=== PATIENT | female | born 1955 | race African-American/Black ===

== ENCOUNTER 2018-07-06 12:28 | Inpatient (IN) ==
[2018-07-06] MEDS ORDERED: TYLENOL PO PRN (13:58)
[2018-07-06] MEDS ORDERED: MORPHINE IV ONE (14:09)
[2018-07-06] MEDS ORDERED: VANCOMYCIN IV PER PHARMACY MISC SCH (14:15)
[2018-07-06 14:49] LABS: BASO# 0.03 X1000 (0.0-0.2); BASO% 0.2 % (0.0-0.8); EOS# 0.62 X1000 (0.0-0.7); EOS% 3.9 % (0.0-10.0); HEMATOCRIT 30.3 % (37.0-47.0); HEMOGLOBIN 9.9 g/dL (12.0-16.0); IMM GRAN# 0.14 X1000 (0.0-0.04); IMM GRAN% 0.9 % (0.0-0.5); LYMPH# 3.25 X1000 (1.2-3.4); LYMPH% 20.3 % (20.5-51.1); MCH 21.9 PG (27-31); MCHC 32.7 g/dL (33-37); MCV 66.9 FL (81-99); MONO# 1.03 X1000 (0.11-0.59); MONO% 6.4 % (1.7-9.3); MPV 12.7 FL (7.4-10.4); NEUT# 10.94 X1000 (1.4-6.5); NEUT% 68.3 % (42.2-75.2); PLT 243 X1000 (130-400); RBC 4.53 XMIL (4.2-5.4); RDW 14.9 % (11.5-14.5); WBC 16.01 X1000 (4.8-10.8)
[2018-07-06 14:58] LABS: AGAP 12; BUN 19 mg/dL (8-22); CALCIUM 8.9 mg/dL (8.8-10.2); CHLORIDE 101 mmol/L (98-107); COSMO 276; CREATININE 0.9 mg/dL (0.5-0.9); ESTIMATED GFR > 60; GLUCOSE 91 mg/dL (70-104); POTASSIUM 4.3 mmol/L (3.5-5.1); SODIUM 137 mmol/L (136-145); TCO2 24 mmol/L (25-35)
[2018-07-06] MEDS ORDERED: LOVENOX SUBQ SCH (15:00)
[2018-07-06] MEDS ORDERED: CLINDAMYCIN 600 MG/D5W 600 MG/50 ML IVPB IV SCH (15:00)
--- NOTE | 2018-07-06 15:09 | HISTORY AND PHYSICAL ---
PRIMARY CARE PROVIDER: CRISS Bernal. CHIEF COMPLAINT: Of a left chest wall cellulitis that began Thursday and progressively worsened. HISTORY OF PRESENTING ILLNESS: This is a 63-year-old female who presents to [facility] ER as a direct admit from her primary care physician's office sent after she was seen there today states that on Thursday she began having a small jerome sized area to her left chest right above her breast that was small on Thursday and was a little bit red and tender to touch. She was unable to get in to see her primary care physician at that time and so she waited until today. Over the weekend she said it kept extending toward her shoulder and down into the left breast. It is now noted to have erythema, edema, warmth to touch with a 4 inch indurated hard area in the center down into the left breast extending toward the nipple is erythema, appears to be a mastitis also so she is being admitted for further evaluation and treatment. PAST MEDICAL HISTORY: Hypertension. PAST SURGICAL HISTORY: Of a hysterectomy, a right elbow surgery and a right foot surgery. FAMILY HISTORY: Reviewed and noncontributory. SOCIAL HISTORY: She currently lives with family. Denies any tobacco, alcohol or illicit drug use. ALLERGIES: To Ceclor, penicillin, promethazine and leather. HOME MEDICATIONS: A current list will need to be obtained, reconciled, reviewed and restarted as appropriate. Will place an order for nursing to update and confirm her home medications. LABORATORY DATA: We were in the process of obtaining a CBC, BMP, CT of the thorax with contrast as she is a direct admit so will have to await the results of those tests. REVIEW OF SYSTEMS: She denied any fever, chills, blurred vision. She does have pain to her left upper chest wall with any movement or touch to the area. She denied any shortness of breath, cough, abdominal pain, constipation, diarrhea, nausea, burning or hurting with urination. PHYSICAL EXAMINATION: On arrival she had a temperature of 97.9 degrees, a pulse of 60, respirations 18, blood pressure 150/65, saturating 98% on room air. GENERAL: This is a 63-year-old female who is lying in the bed and answers questions appropriately. HEENT: Normocephalic and atraumatic. Normal ENT inspection. Pupils are equal, round, reactive to light, accommodation. Extraocular movements are intact. NECK: Normal inspection. Normal range of motion. SKIN: To her left upper chest wall she is noted to have erythema, edema, warmth to touch, about a 4 inch indurated area to the center of the left chest that is hardened, it also extends into her left breast with erythema, edema, warmth to touch, tenderness to touch and appears to be a mastitis there suspicious for an abscess to this left chest wall. She has 1 small area toward her shoulder that is a small pustule that was intact at the time of arrival. No drainage noted. LUNGS: Clear to auscultation bilaterally with equal lung expansion and chest wall movement. HEART: With regular rate and rhythm. No murmurs, rubs, or gallops. ABDOMEN: Soft, nontender, nondistended. Bowel sounds are present x4 quadrants. MUSCULOSKELETAL: She has 5/5 strength x4 extremities. Moves all extremities well. NEUROLOGICAL: The cranial nerves 2-12 appear grossly intact. ASSESSMENT: 1. A left chest wall cellulitis, suspect abscess also. 2. Left breast mastitis secondary to #1. 3. Hypertension history of. PLAN: She was admitted to the medical unit, placed on healthy heart diet. We are going to consult general surgery and again we are obtaining a CBC, BMP, UA, CT of the thorax with contrast to evaluate for an abscess. I am going to give her morphine 4 mg IV x1 now and give her 2 mg IV q.2 hours p.r.n., clindamycin 600 mg IV q.8, vancomycin per pharmacy protocol, Zofran 4 mg IV q.4 hours p.r.n., blood cultures x2, Lovenox 40 mg subcu q.24 for DVT prophylaxis. Will again recheck CBC, BMP in the a.m. We will review all of these results this afternoon and further orders after being seen by attending. Dictated by CRISS Conner for Zaki Erickson MD cc: CRISS Bernal MD
--- NOTE | 2018-07-06 15:20 | HISTORY AND PHYSICAL ---
ADDENDUM: This is an addendum on Ms. Paris Quezada. She is a very pleasant 63-year-old female. She has no major history, but she has had a foot infection apparently in the past, but I do not have any information from that. Apparently she has had a foot infection which Dr. Ravi was managing, but in any case she was seen by her PCP in follow up today for left chest wall cellulitis, which has been rapidly expanding, extremely painful. She has a large area of induration, possibly some early fluctuance 4 to 5 cm in size, it is protuberant from her chest. She also has erythema and streaking down into her left breast, pretty much throughout the left breast. This is a left chest wall cellulitis with associated mastitis, possibly likely developing abscess. We will put her on IV antibiotics, vancomycin, clindamycin, and pursue imaging, surgical consult. I have done just a bedside wound culture because she had a small blister that was deroofed and had a little bit of liquid associated, but there was no evidence of clear purulence. This is a [id number] encounter note with Debra Carter. cc: Zaki Erickson MD
[2018-07-06] MEDS ORDERED: PERCOCET-5 PO ONE (15:23)
[2018-07-06] MEDS ORDERED: VANCOMYCIN 2,000 MG in NS 500 ML IV ONE (16:00)
[2018-07-06 17:33] LABS: BILIRUBIN URINE NEGATIVE (NEGATIVE); BLOOD URINE NEGATIVE (NEGATIVE); CLARITY CLEAR (CLEAR); COLOR YELLOW; GLUCOSE URINE NEGATIVE (NEGATIVE); KETONE URINE NEGATIVE (NEGATIVE); LEUKOCYTES URINE NEGATIVE (NEGATIVE); NITRITE URINE NEGATIVE (NEGATIVE); PH URINE 6.5; PROTEIN URINE NEGATIVE (NEGATIVE); UROBILINOGEN URINE NORMAL
--- NOTE | 2018-07-06 18:09 | Diag Imaging Result Doc PS360 ---
EXAM: CT THORAX W/CONTRAST HISTORY: left chest wall cellulitis, r/o abscess TECHNIQUE: CT chest with intravenous contrast COMPARISON: None. FINDINGS:Skin thickening and soft tissue swelling in the left supraclavicular area extending into the upper breast. Prominent lobulated fluid which is somewhat poorly defined. No air within this. No pleural effusions. No cardiomegaly. No thoracic aortic aneurysm or dissection. No enlarged mediastinal lymph nodes. Mildly prominent axillary nodes. No pneumothoraces. No consolidation. No bronchiectasis. There calcified right hilar lymph nodes with a right upper lobe granuloma. IMPRESSION: Prominent soft tissue swelling with possible early fluid collection/abscess although it is poorly defined at this time. This exam was performed using automated exposure control, adjustment of mA or kV according to patient size, and/or use of iterative reconstruction technique. Electronically signed by Jamil Matos 07/06/2018 6:07 PM
[2018-07-06 18:23] LABS: URINE BACTERIA 1+ /HFP; URINE CAST NONE SEEN /LPF; URINE CRYSTAL NONE SEEN /HPF; URINE EPITHELIAL CELLS <10 /HPF (<10); URINE SOURCE CLEAN CATCH; URINE WBC <10 /HPF (<10); URINE YEAST NONE SEEN /HPF
[2018-07-06] MEDS: ZOFRAN IV PRN (19:41)
[2018-07-06] MEDS: MORPHINE IV PRN ×2 (20:34→22:20)
[2018-07-06] MEDS: CLINDAMYCIN 600 MG/D5W 600 MG/50 ML IVPB IV SCH (23:27)
--- NOTE | 2018-07-06 23:30 | GENERAL SURGERY CONSULTATION ---
DATE: 07/06/2018 HISTORY OF PRESENT ILLNESS: This is a 62-year-old female who has had a follicular lesion in the left upper breast, left subclavicle. chest for the last week or so. It has developed more swelling, induration, erythema, and pain. She went to her primary physician, Dr. Shama Hoffman, who has referred her to the ER for admission. She denies any drainage. She has had some subjective fevers, quite a lot of pain associated with this. She has had regular mammograms that have, apparently, been normal, although we do not have those here with us today. MEDICAL HISTORY: Negative. SURGICAL HISTORY: Negative. SOCIAL HISTORY: No tobacco, alcohol, or drugs. She works at [employer] FAMILY HISTORY: Reviewed and noncontributory. REVIEW OF SYSTEMS: Ten point negative. PHYSICAL EXAMINATION: Vitals: No fevers. Pulse 82, blood pressure 143/60, oxygen saturation 100% on room air. General: She is alert. HEENT: No scleral icterus or cervical mass. Cardiovascular: Normal rate. Regular rhythm. Pulmonary: No increased work of breathing. Abdomen: Soft, nontender, nondistended. Integument: Warm, dry. Psychiatric: Appropriate affect. Neurologic: No gross deficits. Lymphatic: No cervical, supraclavicular, or axillary adenopathy. Breast: There is no obvious masses bilaterally. In the left upper breast, there is erythema extending from her subclavicle skin down to the superior aspect of her breast. It is very indurated and fluctuant, but there is no discrete mass. There is no nipple retraction or skin retraction. No scars. ASSESSMENT AND PLAN: A 62-year-old female with apparent left chest abscess underneath her left clavicle/upper breast. She unfortunately had just eaten dinner. She is afebrile. She does have leukocytosis, she is on appropriate antibiotics. I do not feel any crepitus or evidence of necrosis. I have recommended incision and drainage of this in the operating room tomorrow. I have posted her. We will transfer her to [facility] [place]. I would continue clindamycin for this. We will culture it in the operating room. cc: Jesus Fam MD
[2018-07-07] MEDS: MORPHINE IV PRN ×2 (04:34→09:02)
[2018-07-07] MEDS: CLINDAMYCIN 600 MG/D5W 600 MG/50 ML IVPB IV SCH ×4 (06:25→22:08)
[2018-07-07] MEDS: LOVENOX SUBQ SCH (06:30)
[2018-07-07 06:43] LABS: BASO# 0.03 X1000 (0.0-0.2); BASO% 0.2 % (0.0-0.8); EOS# 0.65 X1000 (0.0-0.7); HEMATOCRIT 28.7 % (37.0-47.0); HEMOGLOBIN 9.1 g/dL (12.0-16.0); IMM GRAN# 0.06 X1000 (0.0-0.04); IMM GRAN% 0.5 % (0.0-0.5); LYMPH# 2.17 X1000 (1.2-3.4); LYMPH% 16.8 % (20.5-51.1); MCH 21.4 PG (27-31); MCHC 31.7 g/dL (33-37); MCV 67.5 FL (81-99); MONO% 5.4 % (1.7-9.3); MPV 12.4 FL (7.4-10.4); NEUT# 9.27 X1000 (1.4-6.5); NEUT% 72.1 % (42.2-75.2); PLT 244 X1000 (130-400); RBC 4.25 XMIL (4.2-5.4); RDW 14.8 % (11.5-14.5); WBC 12.88 X1000 (4.8-10.8)
[2018-07-07 07:03] LABS: AGAP 12; BUN 16 mg/dL (8-22); CALCIUM 8.5 mg/dL (8.8-10.2); CHLORIDE 102 mmol/L (98-107); COSMO 276; ESTIMATED GFR > 60; GLUCOSE 112 mg/dL (70-104); POTASSIUM 3.9 mmol/L (3.5-5.1); SODIUM 137 mmol/L (136-145); TCO2 23 mmol/L (25-35)
[2018-07-07] MEDS ORDERED: MIRALAX PO PRN (09:58)
[2018-07-07] MEDS ORDERED: SUFENTA ONE (11:06)
[2018-07-07] MEDS ORDERED: DIPRIVAN 1% ONE (11:52)
--- NOTE | 2018-07-07 14:04 | PROGRESS NOTE ---
DATE: 07/07/2018 SUBJECTIVE: Patient resting comfortably in bed. OBJECTIVE: Vital Signs: Temperature is 98.3 degrees, pulse is 71, respiratory rate 16, blood pressure is 115/62, oxygen saturation is 99%. HEENT: Atraumatic, normocephalic. Cardiovascular system: S1, S2. Respiratory system: Has evidence of good air entry bilaterally. Chest: She has a wound on the region of the left chest wall dressed. Abdomen: Soft, nontender. No masses felt. Extremities: No evidence of edema. Central nervous system: No obvious focal deficit noted. LABORATORY DATA: WBC is 12.8, hematocrit is 28.7 with a platelet count of 244,000. Sodium is 137, potassium 3.9, chloride is 102, bicarb is 23, BUN 16, creatinine 1.0. Wound culture came back positive for gram-positive cocci. ASSESSMENT AND PLAN: 1. Abscess left chest wall status post incision and drainage. Continue local wound care as well as IV antibiotics. 2. Hypertension. Controlled. 3. Deep vein thrombosis prophylaxis. Sequential compression devices. 4. Gastrointestinal prophylaxis. Proton pump inhibitor. cc: Kenrick Wise MD
--- NOTE | 2018-07-07 14:18 | GENERAL SURGERY PROGRESS NOTE ---
DATE: 07/07/2018 SUBJECTIVE: No events overnight. No fevers. No tachycardia. LABORATORY DATA: Reviewed. White count is down to 12, hematocrit is 28. Creatinine is 1.0. IMAGING: I have reviewed her CT scan. ASSESSMENT AND PLAN: A 63-year-old female with left anterior chest abscess. We discussed the risks of bleeding, recurrence, need for further surgery, anticipated recovery, and possible prolonged wound healing. She understands and consents. Will go to the operating room today for incision and drainage of left anterior chest abscess. Will continue on antibiotics. cc: Jesus Fam MD
--- NOTE | 2018-07-07 14:50 | OPERATIVE NOTE ---
PROCEDURE DATE: 07/07/2018 POSTOP DIAGNOSIS: Left anterior chest abscess. POSTOPERATIVE DIAGNOSIS: Left anterior chest abscess. PROCEDURE PERFORMED: Incision and drainage of left anterior chest abscess. ESTIMATED BLOOD LOSS: 10 mL. SPECIMENS: Cultures. ANESTHESIA: General. INDICATIONS: This is a 63-year-old female with a large complex abscess of the anterior chest. FINDINGS: Abscess cavity extending down to the level of the pectoralis muscle. OPERATIVE NOTE: Risks, benefits, and alternatives were discussed with the patient. She consented to the procedure. Seen preoperatively and the surgical site was confirmed and marked. She was taken to the operating room and placed in the supine position. General anesthesia induced without complication. All bony prominence were padded. Her chest was prepped with Betadine and draped in usual fashion. After a time-out, we made an incision over the area of greatest fluctuance. We expressed a large amount of pus, we cultured this, disrupted loculations, irrigated the wound with Vashe, confirmed hemostasis, packed with iodoform gauze, covered it with 4 x 4 gauze. She tolerated it well. She was awoken and transferred to recovery. I spoke with family. cc: Jesus Fam MD
[2018-07-07] MEDS: PERCOCET-5 PO PRN ×2 (16:14→22:09)
[2018-07-07] MEDS ORDERED: VANCOMYCIN 1,750 MG in NS 250 ML IV SCH (18:00)
[2018-07-07] MEDS: VANCOMYCIN 1,750 MG in NS 250 ML IV SCH (18:19)
[2018-07-07] MEDS: PERIDEX MT SCH (22:08)
[2018-07-08] MEDS: PERCOCET-5 PO PRN ×2 (03:56→21:26)
[2018-07-08] MEDS: MORPHINE IV PRN ×2 (05:54→15:46)
[2018-07-08 06:26] LABS: BASO# 0.05 X1000 (0.0-0.2); BASO% 0.4 % (0.0-0.8); EOS# 0.53 X1000 (0.0-0.7); EOS% 4.7 % (0.0-10.0); HEMATOCRIT 31.4 % (37.0-47.0); HEMOGLOBIN 10.1 g/dL (12.0-16.0); IMM GRAN# 0.14 X1000 (0.0-0.04); IMM GRAN% 1.2 % (0.0-0.5); LYMPH# 2.93 X1000 (1.2-3.4); LYMPH% 25.7 % (20.5-51.1); MCHC 32.2 g/dL (33-37); MCV 68.3 FL (81-99); MONO# 0.59 X1000 (0.11-0.59); MONO% 5.2 % (1.7-9.3); MPV 11.9 FL (7.4-10.4); NEUT# 7.14 X1000 (1.4-6.5); NEUT% 62.8 % (42.2-75.2); PLT 258 X1000 (130-400); RDW 14.9 % (11.5-14.5); WBC 11.38 X1000 (4.8-10.8)
[2018-07-08] MEDS: LOVENOX SUBQ SCH (06:47)
[2018-07-08] MEDS: CLINDAMYCIN 600 MG/D5W 600 MG/50 ML IVPB IV SCH ×3 (06:47→23:34)
[2018-07-08 06:55] LABS: AGAP 11; BUN 14 mg/dL (8-22); CALCIUM 7.9 mg/dL (8.8-10.2); CHLORIDE 97 mmol/L (98-107); COSMO 269; CREATININE 1.1 mg/dL (0.5-0.9); ESTIMATED GFR > 60; GLUCOSE 99 mg/dL (70-104); POTASSIUM 3.7 mmol/L (3.5-5.1); SODIUM 134 mmol/L (136-145); TCO2 26 mmol/L (25-35)
[2018-07-08] MEDS: HYDROCHLOROTHIAZIDE PO SCH (08:17)
[2018-07-08] MEDS: ZOFRAN IV PRN ×2 (08:17→15:53)
[2018-07-08] MEDS: ASPIRIN PO SCH (08:17)
[2018-07-08] MEDS: VITAMIN B-12 PO SCH (08:17)
[2018-07-08] MEDS: PERIDEX MT SCH ×2 (08:18→21:26)
[2018-07-08] MEDS: TENORMIN PO SCH (08:18)
[2018-07-08] MEDS: ALDACTONE PO SCH (08:18)
[2018-07-08] MEDS: FOLIC ACID PO SCH (08:18)
[2018-07-08] MEDS: COZAAR PO SCH (08:19)
[2018-07-08] MEDS: PATIENT'S OWN MED PO SCH (08:20)
--- NOTE | 2018-07-08 08:47 | GENERAL SURGERY PROGRESS NOTE ---
DATE: 07/08/2018 SUBJECTIVE: The patient seems to be doing okay. OBJECTIVE: Vital Signs: The patient is currently afebrile. Her vital signs are stable. General: No acute distress. HEENT: Normocephalic, atraumatic. Pupils equal, round, reactive to light. Mucous membranes moist. Oropharynx benign. Neck: Supple. Trachea midline. Cardiovascular: Regular rate and rhythm. Chest Wall: With abscess noted. Some induration. Packing removed. Overall, wound looks okay. Abdomen: Soft, nontender, nondistended. Extremities: Moves all extremities. Neurologic: Grossly intact. Skin: No signs of jaundice, but wound as noted above. Vascular: All extremities perfused. LABORATORY DATA: Laboratory reviewed from yesterday. Labs from this morning are pending. ASSESSMENT AND PLAN: A 63-year-old with a chest wall abscess. Chest wall abscess, status post incision and drainage. At this time, remove packing. Will get nurses to place wet-to-dry dressing changes twice a day. Overall, I think she is getting close to being able to be discharged. She can likely go home and continue this local wound care. Follow up with Dr. Fam. cc: Renato Dowd MD
--- NOTE | 2018-07-08 15:23 | PROGRESS NOTE ---
DATE: 07/08/2018 SUBJECTIVE: Patient is resting in bed. Not in any obvious distress. OBJECTIVE: Vital Signs: Temperature 97.8 degrees, pulse 69, respiratory rate is 18, blood pressure 134/62, oxygen saturation is 95%. HEENT: Atraumatic, normocephalic. Cardiovascular system: S1, S2. Respiratory system: Has evidence of good entry bilaterally. Abdomen: Soft, nontender. No masses felt. Extremities: No evidence of edema. Central nervous system: No obvious focal deficit noted. LABS: WBCs 11.38, hematocrit is 31.4, with a platelet count of 258,000. Sodium is 134, potassium 3.7, chloride 97, bicarb 26, BUN is 40, creatinine 1.1. Culture from the wound site positive for methicillin-resistant Staph aureus. ASSESSMENT AND PLAN: 1. Abscess left chest wall secondary to methicillin-resistant Staphylococcus aureus, status post incision and drainage. Continue local wound care as well as IV antibiotics. 2. Hypertension. Controlled. 3. Deep vein thrombosis prophylaxis. SCDs. 4. Gastrointestinal prophylaxis. PPI. 5. Disposition. Plan to discharge the patient home tomorrow on oral antibiotics, as well as with home health services to carry out daily local wound care. cc: Kenrick Wise MD
[2018-07-08] MEDS: VANCOMYCIN 1,750 MG in NS 250 ML IV SCH (18:18)
[2018-07-09] MEDS: PERCOCET-5 PO PRN ×3 (03:26→15:28)
[2018-07-09] MEDS: CLINDAMYCIN 600 MG/D5W 600 MG/50 ML IVPB IV SCH (06:48)
[2018-07-09] MEDS: LOVENOX SUBQ SCH (06:48)
[2018-07-09] MEDS: HYDROCHLOROTHIAZIDE PO SCH (08:21)
[2018-07-09] MEDS: ALDACTONE PO SCH (08:21)
[2018-07-09] MEDS: COZAAR PO SCH (08:21)
[2018-07-09] MEDS: ASPIRIN PO SCH (08:21)
[2018-07-09] MEDS: TENORMIN PO SCH (08:21)
[2018-07-09] MEDS: PERIDEX MT SCH (08:21)
[2018-07-09] MEDS: FOLIC ACID PO SCH (08:21)
[2018-07-09] MEDS: VITAMIN B-12 PO SCH (08:22)
[2018-07-09] MEDS: PATIENT'S OWN MED PO SCH (08:23)
--- NOTE | 2018-07-09 11:02 | GENERAL SURGERY PROGRESS NOTE ---
DATE: 07/09/2018 SUBJECTIVE: Patient seems to be doing okay. OBJECTIVE: Vital Signs: Patient is currently afebrile. Her vital signs stable. General: No acute distress. HEENT: Normocephalic, atraumatic. Pupils equal, round, reactive to light. Mucous membranes moist. Oropharynx benign. Neck: Supple. Trachea midline. Cardiovascular: Regular rate and rhythm. Lungs: Grossly clear. Chest wall abscess noted, but seems to be improving. Abdomen: Soft nontender nondistended. Extremities: Moves all extremities. Neurologic: Grossly intact. Skin: As noted above. Vascular: All extremities perfused. LABORATORY: None this morning as of yet. Microbiology shows gram-positive cocci and Staph aureus. ASSESSMENT AND PLAN: A 63-year-old female with chest wall abscess. 1. Chest wall abscess. At this time, continue local wound care. She is on antibiotics. 2. We will defer discharge to the hospitalist but she could follow up with Dr. Fam. cc: Renato Dowd MD
[2018-07-09 12:28] VITALS: BP 154/63
--- NOTE | 2018-07-10 18:32 | DISCHARGE SUMMARY ---
ADMISSION DATE: 07/06/2018 DISCHARGE DATE: 07/09/2018 PRINCIPAL DIAGNOSIS: Left chest wall cellulitis/abscess. SECONDARY DIAGNOSIS: Hypertension. DISCHARGE MEDICATIONS: Include the followin. Clindamycin 600 mg p.o. every 8 hours. 2. Micardis 80 mg p.o. once a day. 3. Aspirin 81 mg p.o. daily. 4. Atenolol 25 mg p.o. once a day. 5. Folic acid 1 mg p.o. daily. 6. Hydrochlorothiazide 12.5 mg once a day. 7. MiraLAX 17 g to be taken as needed. 8. Spironolactone 0.5 mg p.o. daily. 9. Percocet 5/325 every 4 to 6 hours as needed. 10. Potassium 1 tab daily. CONSULTATIONS DONE DURING THIS HOSPITAL STAY: Dr. Fam, General Surgery. PROCEDURES DONE DURING THIS HOSPITAL STAY: Chest CT done on 07/06/2018 and shows a prominent soft tissue swelling as well as possible LE fluid collection/abscess although it is poorly defined at this time. HOSPITAL COURSE: Ms. Paris Quezada is a 63-year-old female, who has a history of hypertension. She was admitted to the hospital because of left chest wall cellulitis with possible abscess formation. The patient was seen by General Surgery. Subsequently, she had incision and drainage of the left anterior chest abscess. Culture came back positive for MRSA and sensitive to clindamycin, The patient has done well. She is stable. PHYSICAL EXAMINATION: Vital signs: During my evaluation today, her vital signs as follows: Temperature 97.9 degrees, pulse 56, respirations 24, blood pressure 154/60, oxygen saturation is 98%. HEENT: Atraumatic, normocephalic. Cardiovascular: S1, S2. Respiratory: Has evidence of good air entry bilaterally. Abdomen: Soft, nontender. No masses felt. Extremities: No evidence of edema. Central nervous system: No obvious focal deficit noted. PLAN: Discharge home today on oral clindamycin. financial services officer have been consulted to arrange for wound dressing as an outpatient. The patient will need to follow up with Dr. Garrett William in the outpatient following discharge and also will need to follow up with Dr. Fam, who did incision and drainage, in the outpatient setting as well. cc: Kenrick Wise MD [facility]OSPITALJose Roberto
== END 2018-07-09 16:03 | disposition home health service (06) | DRG 581 ==
LOC: P.DIRADM 12:28 → SUATTDRO 12:28 → P.MEDSURG 12:59 → 4N 22:02
PROVIDERS: ATTEND Internal Medicine
CPT/HCPCS: 71260; 80048; 81001; 85025; 87040; 87070; 87075; 87077; 87186; 94799; A9270; J1650; J2270; J2405; J3370; J7040; J7050; Q9967